=== PATIENT | female | born 2000 | race Native Hawaiian/Other Pacific Islander ===

== ENCOUNTER 2018-12-17 13:00 | Emergency (ER) | payer BC ==
[~2018-12-17] VITALS: Ht 157.5 cm; Wt 79.4 kg
[2018-12-17 13:45] LABS: PLATELET COUNT 243 K/uL (152-353)
[2018-12-17 13:48] LABS: POTASSIUM 3.2 mmol/L (3.6-5.2)
[2018-12-17 19:25] VITALS: BP 105/64; TEMP 97.7
== END 2018-12-17 19:25 | disposition other institution (70) ==
LOC: ED 13:00
PROVIDERS: Emergency Medicine
DX: R45.851 Suicidal ideations (principal)
CPT/HCPCS: 36415; 80053; 80307; 80320; 80329; 81000; 81025; 85027; 87088; 93005; 96372; 99285; J2060

== ENCOUNTER 2022-11-04 08:41 | Outpatient (CLI) | payer BC | END 2022-11-04 19:22 | disposition home or self-care (01) | LOC: MRI 08:41 | PROVIDERS: ATTEND Internal Medicine | DX: Z01.01 Encounter for examination of eyes and vision with abnormal findings (principal); R51.9 Headache, unspecified; H53.9 Unspecified visual disturbance ==